=== PATIENT | female | born 1965 | race Two or more races ===

== ENCOUNTER 2016-10-21 14:26 | Emergency (ER) | payer OTHER ==
[~2016-10-21] VITALS: Ht 170.2 cm; Wt 90.0 kg
[2016-10-21] MEDS ORDERED: PYRIDOSTIGMINE BROMIDE 60MG TABLET PO ONE (15:15)
[2016-10-21] MEDS ORDERED: IPRATROPIUM/ALBUTEROL 0.5-3(2.5)MG/3ML NEB HHN ONE (15:15)
[2016-10-21 15:33] LABS: HEMATOCRIT. 38.7 % (36.0-48.0); HEMOGLOBIN. 12.6 g/dL (12.0-16.0); MEAN CORPUSCULAR HEMOGLOBIN 28.7 pg (28.0-32.0); PLATELET 278 x1000/uL (130-400); RED CELL DISTRIBUTION WIDTH 13.3 % (11.6-14.6)
[2016-10-21 15:43] LABS: D-DIMER 0.54 mg/L FEU (<0.50); INR 1.1; PARTIAL THROMBOPLASTIN TIME 25.1 sec (24.0-34.0)
[2016-10-21 15:49] LABS: CARBON DIOXIDE 28 mEq/L (21-32); CHLORIDE 102 mEq/L (98-107); TROPONIN I < 0.02 ng/mL (0.00-0.04)
[2016-10-21 16:56] LABS: PLATELET ESTIMATE NORMAL
[2016-10-21] MEDS ORDERED: METHYLPREDNISOLONE SOD SUCC 125 MG/2 ML VIAL IV ONE (17:30)
[2016-10-22 01:16] VITALS: BP 136/74
== END 2016-10-22 02:15 | disposition short-term general hospital (02) ==
LOC: ER 15:09 → EDBEDREQ 15:12 → EDBEDREQSVC 17:19 → EDBEDREQ 17:19 → CANRESERV 19:37 → ENRESERV 19:37 → CANBEDREQ 20:56 → ER 10-22 02:15
DX: R06.02 Shortness of breath (principal); R07.89 Other chest pain; G70.00 Myasthenia gravis without (acute) exacerbation; I10 Essential (primary) hypertension; J45.909 Unspecified asthma, uncomplicated; Z88.0 Allergy status to penicillin
CPT/HCPCS: 36415; 71010; 80053; 83605; 83690; 83880; 84443; 84484; 85025; 85379; 85610; 85730; 87040; 93005; 94640; 96374; 99285; J2930; Z7610; J7620

== ENCOUNTER 2016-12-04 16:14 | Emergency (ER) | payer OTHER ==
[~2016-12-04] VITALS: Ht 167.6 cm; Wt 96.0 kg
[2016-12-04 19:18] LABS: HEMATOCRIT. 40.7 % (36.0-48.0); HEMOGLOBIN. 13.4 g/dL (12.0-16.0); MEAN CORPUSCULAR HEMOGLOBIN 29.3 pg (28.0-32.0); MEAN CORPUSCULAR VOLUME 88.9 fL (81.0-99.0); PLATELET 302 x1000/uL (130-400); RED BLOOD CELL COUNT 4.58 mill/uL (4.2-5.4); RED CELL DISTRIBUTION WIDTH 14.5 % (11.6-14.6)
[2016-12-04 19:29] LABS: CARBON DIOXIDE 25 mEq/L (21-32); CHLORIDE 107 mEq/L (98-107)
[2016-12-04] MEDS ORDERED: KETOROLAC 60MG/2ML VIAL IM STA (19:58)
[2016-12-04] MEDS ORDERED: HYDROCODONE/APAP 7.5/325MG 1 TAB TABLET PO ONE (20:00)
[2016-12-04 20:15] VITALS: BP 127/74
[2016-12-04 20:50] LABS: PLATELET ESTIMATE NORMAL
== END 2016-12-04 21:15 | disposition home or self-care (01) ==
LOC: ER 16:14
DX: M25.561 Pain in right knee (principal); Z88.0 Allergy status to penicillin
CPT/HCPCS: 36415; 73560; 80053; 85025; 96372; 99285; J1885; L1830; Z7610

== ENCOUNTER 2017-10-21 15:25 | Emergency (ER) | payer OTHER ==
[~2017-10-21] VITALS: Ht 167.6 cm; Wt 85.0 kg
[2017-10-22] MEDS ORDERED: HYDROCODONE/ACETAMINOPHEN 5/325MG TABLET PO ONE (00:15)
[2017-10-22] MEDS ORDERED: IBUPROFEN 600MG TABLET PO ONE (00:15)
[2017-10-22 01:30] LABS: HEMATOCRIT. 41.8 % (36.0-48.0); HEMOGLOBIN. 13.3 g/dL (12.0-16.0); MEAN CORPUSCULAR HEMOGLOBIN 28.3 pg (28.0-32.0); MEAN CORPUSCULAR VOLUME 88.8 fL (81.0-99.0); MEAN PLATELET VOLUME 8.9 fl (7.4-10.4); PLATELET 302 x1000/uL (130-400); RED BLOOD CELL COUNT 4.71 mill/uL (4.2-5.4); RED CELL DISTRIBUTION WIDTH 13.4 % (11.6-14.6)
[2017-10-22 01:34] LABS: CHLORIDE 106 mEq/L (98-107)
[2017-10-22 01:38] LABS: PARTIAL THROMBOPLASTIN TIME 24.7 sec (23.4-31.0); PROTHROMBIN TIME 10.4 sec (9.1-11.1)
[2017-10-22 02:18] LABS: PLATELET ESTIMATE NORMAL
[2017-10-22] MEDS ORDERED: IOHEXOL-300 100 ML BOTTLE ONE (03:48)
[2017-10-22 04:47] VITALS: BP 108/78
== END 2017-10-22 04:54 | disposition home or self-care (01) ==
LOC: ER 15:25
DX: M25.512 Pain in left shoulder (principal); R07.89 Other chest pain; M79.632 Pain in left forearm; I10 Essential (primary) hypertension; V49.49XA Driver injured in collision with other motor vehicles in traffic accident, initial encounter; Y93.89 Activity, other specified; Y92.410 Unspecified street and highway as the place of occurrence of the external cause
CPT/HCPCS: 36415; 71045; 71260; 73030; 73090; 80053; 83880; 84484; 85025; 85610; 85730; 93005; 99285; Q9967